=== PATIENT | female | born 1970 | race Caucasian/White ===

== ENCOUNTER 2016-05-25 22:03 | Emergency (ER) | payer OTHER ==
[~2016-05-25] VITALS: Ht 162.6 cm; Wt 96.6 kg
[2016-05-25 22:07] VITALS: BP 156/94
--- NOTE | 2016-05-25 22:54 | NUR ---
TO ER BED 8
--- NOTE | 2016-05-25 23:00 | NUR ---
PT IS A 45/F BIB SELF TO ED WITH C/O BILATERAL LEG SWELLING x 3 DAYS AGO. PT DENIES INJURY OR TRAUMA. PT STATES NO MED HX. DENIES N/V/D; SKIN IS PINK/WARM/DRY; AAOX4 WITH EVEN AND STEADY GAIT; LUNGS CLEAR BL; HR EVEN AND REGULAR; PT DENIES ANY FEVER, CP, SOB, OR COUGH AT THIS TIME; PATIENT STATES PAIN OF 7/10 AT THIS TIME; VSS; PATIENT POSITIONED FOR COMFORT; HOB ELEVATED; BEDRAILS UP X2; BED DOWN. ER MD MADE AWARE OF PT STATUS.
--- NOTE | 2016-05-25 23:13 | NUR ---
Patient being evaluated by physician at bedside.
[2016-05-25] MEDS ORDERED: HYDROcodone/APAP 5/325 MG 1 TAB TAB PO ONE (23:30)
--- NOTE | 2016-05-26 00:15 | NUR ---
PT JUST FINISHED US AT BEDSIDE.
[2016-05-26 01:32] VITALS: BP 136/84
== END 2016-05-26 01:32 | disposition home or self-care (01) ==
LOC: MED 22:03
DX: R60.9 Edema, unspecified (principal); R21 Rash and other nonspecific skin eruption; F17.210 Nicotine dependence, cigarettes, uncomplicated; Z88.6 Allergy status to analgesic agent; Z90.89 Acquired absence of other organs
CPT/HCPCS: 36415; 71010; 80053; 82550; 82553; 83880; 84484; 85025; 93005; 93970; 99285; Q0092

== ENCOUNTER 2017-04-18 11:27 | Emergency (ER) | payer OTHER ==
[~2017-04-18] VITALS: Ht 162.6 cm; Wt 97.5 kg
[2017-04-18 11:34] VITALS: BP 138/84
--- NOTE | 2017-04-18 11:45 | NUR ---
INFLUENZA SWAB COLLECTED AND SENT TO LAB. PT SENT BACK INTO LOBBY TO WAIT FOR BED.
[2017-04-18] MEDS ORDERED: ACETAMINOPHEN EXTRA STRENGTH 500 MG TAB ONE (11:50)
--- NOTE | 2017-04-18 12:25 | NUR ---
Patient ambulated to OF3 with family. RN evaluating patient.
--- NOTE | 2017-04-18 12:40 | NUR ---
FLU LIKE S/S;BODY ACHES, FEVER LAST NIGHT, DENIES ANY N/V/D, OR ABD PAIN. PT HERE WITH SON WITH SIMILIAR SYMPTOMS. RESP EVEN AND UNLABORED, REPORTS INTEMITTENT BOOKER COUGH. PT SPEKAING IN FULL CLR SENTENCES. VSS HX: NONE
--- NOTE | 2017-04-18 12:42 | NUR ---
ER MD SPENCER AT BEDSIDE
[2017-04-18] MEDS ORDERED: ACETAMIN/CODEINE 120/12MG-5ML 5 ML UDC PO ONE (12:55)
== END 2017-04-18 13:17 | disposition home or self-care (01) ==
LOC: MED 11:27
DX: J06.9 Acute upper respiratory infection, unspecified (principal); Z88.6 Allergy status to analgesic agent
CPT/HCPCS: 36415; 87804; 99284

== ENCOUNTER 2017-08-19 05:11 | Emergency (ER) | payer OTHER ==
[~2017-08-19] VITALS: Ht 162.6 cm; Wt 88.0 kg
[2017-08-19 05:13] VITALS: BP 142/90
--- NOTE | 2017-08-19 05:17 | NUR ---
TO BED # 9 AMBULATORY
--- NOTE | 2017-08-19 05:20 | NUR ---
47/F CAME IN W C/O BURNING EPIGASTRIC PAIN RADIATING UP TO HER THROAT. PT STATES "I ALWAYS HAVE REFLUX AND BURNING ALL THE TIME, I TOOK ZANTAC BUT IT DID NOT HELP ME". N/V X2, ABD SOFT, ROUND, -TENDERNESS, BS ACTIVE X4. PMH: GERD
--- NOTE | 2017-08-19 05:35 | NUR ---
Dr. Grant evaluating patient at bedside.
[2017-08-19] MEDS ORDERED: NACL 0.9% 1,000 ML IV SCH (05:36)
[2017-08-19] MEDS ORDERED: ONDANSETRON 4 MG/2 ML VIAL IVP ONE (05:40)
[2017-08-19] MEDS ORDERED: FAMOTIDINE 20 MG/2 ML VIAL IVP ONE (05:40)
[2017-08-19] MEDS ORDERED: MORPHINE SULFATE 4 MG/ML SYR IVP ONE (05:40)
[2017-08-19 06:10] LABS: BASOPHILS % (AUTO) 0.6 % (0.0-2.0); EOSINOPHILS # (AUTO) 0.1 K/uL (0-0.4); EOSINOPHILS % (AUTO) 0.9 % (0.0-4.0); HEMATOCRIT 38.6 % (36-48); HEMOGLOBIN 12.9 g/dL (12.0-16.0); LYMPHOCYTES # (AUTO) 0.8 K/uL (2.5-16.5); LYMPHOCYTES % (AUTO) 10.7 % (20.5-51.1); MEAN CORPUSCULAR HEMOGLOBIN 30 pg (27-31); MEAN CORPUSCULAR HGB CONC 34 g/dL (33-37); MEAN CORPUSCULAR VOLUME 89.8 fL (80-94); MONOCYTES # (AUTO) 0.8 K/uL (0.8-1.0); MONOCYTES % (AUTO) 10.5 % (1.7-9.3); NEUTROPHILS # (AUTO) 5.6 K/uL (1.8-7.7); NEUTROPHILS % (AUTO) 77.3 % (42.2-75.2); PLATELET COUNT (AUTO) 223 K/uL (140-450); RED CELL DISTRIBUTION WIDTH 13.1 % (11.6-13.7); WHITE BLOOD COUNT (AUTO) 7.2 K/uL (4.8-10.8)
--- NOTE | 2017-08-19 06:10 | NUR ---
Ultrasound at bedside.
[2017-08-19 06:22] LABS: APPEARANCE,URINE CLEAR (CLEAR); BILIRUBIN,URINE NEGATIVE (NEGATIVE); BLOOD, URINE NEGATIVE (NEGATIVE); COLOR,URINE YELLOW (YELLOW); LEUKOCYTE ESTERASE ,URINE TRACE (NEGATIVE); NITRITE, URINE NEGATIVE (NEGATIVE); UGLUCOSE NEGATIVE (NEGATIVE)
[2017-08-19 06:28] LABS: ALBUMIN 3.4 g/dL (3.4-5.0); CREATININE 0.8 mg/dL (0.6-1.3); TOTAL BILIRUBIN 0.4 mg/dL (0.0-1.0)
--- NOTE | 2017-08-19 06:38 | NUR ---
PT TAKEN TO CT
[2017-08-19 06:39] LABS: RBC,URINE 0-5 (RARE) /HPF (0-5); WBC,URINE 0-5 (RARE) /HPF (0-5)
--- NOTE | 2017-08-19 06:53 | NUR ---
PT RETURN FROM CT
--- NOTE | 2017-08-19 07:01 | NUR ---
Patient discharged with v/s stable. Written and verbal after care instructions given and explained. Patient alert, oriented and verbalized understanding of instructions. Ambulatory with steady gait. All questions addressed prior to discharge. ID band removed. Patient advised to follow up with PMD. Rx of NORCO, REGLAN, ZOFRAN ODT given. Patient educated on indication of medication including possible reaction and side effects. Opportunity to ask questions provided and answered.
[2017-08-19 07:05] VITALS: BP 124/72
== END 2017-08-19 07:01 | disposition home or self-care (01) ==
LOC: MED 05:11
DX: K29.70 Gastritis, unspecified, without bleeding (principal); K80.70 Calculus of gallbladder and bile duct without cholecystitis without obstruction; K44.9 Diaphragmatic hernia without obstruction or gangrene; K21.9 Gastro-esophageal reflux disease without esophagitis; Z90.89 Acquired absence of other organs; Z88.8 Allergy status to other drugs, medicaments and biological substances
CPT/HCPCS: 36415; 74176; 76705; 80053; 81001; 81025; 83690; 84703; 85025; 96361; 96374; 96375; 99285; J2270; J2405; J3490; J7030; Q0092

== ENCOUNTER 2017-09-15 22:18 | Emergency (ER) | payer OTHER ==
[~2017-09-15] VITALS: Ht 162.6 cm; Wt 99.8 kg
[2017-09-15 22:37] VITALS: BP 127/74
--- NOTE | 2017-09-15 22:45 | NUR ---
PT AMBULATED TO BED 1. FAMILY/FRIEND AT BEDSIDE
--- NOTE | 2017-09-15 22:50 | NUR ---
EPIGASTRIC PAIN, N/V, "GALL BLADDER HURTS". AWAITING GALL BLADDER REMOVAL SURGERY. . DENIES N/V/D; SKIN IS PINK/WARM/DRY; AAOX4 WITH EVEN AND STEADY GAIT; LUNGS CLEAR BL; HR EVEN AND REGULAR; PT DENIES ANY FEVER, CP, SOB, OR COUGH AT THIS TIME; PATIENT STATES PAIN OF 9/10 AT THIS TIME; VSS; PATIENT POSITIONED FOR COMFORT; HOB ELEVATED; BEDRAILS UP X2; BED DOWN. ER MD MADE AWARE OF PT STATUS.
[2017-09-15] MEDS ORDERED: NACL 0.9% 500 ML IV ONE (23:07)
[2017-09-15] MEDS ORDERED: ONDANSETRON 4 MG/2 ML VIAL IVP ONE (23:10)
[2017-09-15] MEDS ORDERED: KETOROLAC 30 MG/ML VIAL IVP ONE (23:10)
--- NOTE | 2017-09-15 23:15 | NUR ---
STILL UNABLE TO GET URINE SAMPLE
[2017-09-16 00:06] LABS: BASOPHILS % (AUTO) 0.6 % (0.0-2.0); EOSINOPHILS # (AUTO) 0.1 K/uL (0-0.4); EOSINOPHILS % (AUTO) 1.1 % (0.0-4.0); HEMATOCRIT 40.4 % (36-48); HEMOGLOBIN 13.4 g/dL (12.0-16.0); LYMPHOCYTES # (AUTO) 1.4 K/uL (2.5-16.5); LYMPHOCYTES % (AUTO) 23.8 % (20.5-51.1); MEAN CORPUSCULAR HEMOGLOBIN 30 pg (27-31); MEAN CORPUSCULAR HGB CONC 33 g/dL (33-37); MEAN CORPUSCULAR VOLUME 90.2 fL (80-94); MONOCYTES # (AUTO) 0.7 K/uL (0.8-1.0); MONOCYTES % (AUTO) 11.5 % (1.7-9.3); NEUTROPHILS # (AUTO) 3.7 K/uL (1.8-7.7); PLATELET COUNT (AUTO) 243 K/uL (140-450); RED BLOOD CELL COUNT(AUTO) 4.49 MIL/uL (4.20-5.40); RED CELL DISTRIBUTION WIDTH 12.9 % (11.6-13.7); WHITE BLOOD COUNT (AUTO) 5.8 K/uL (4.8-10.8)
[2017-09-16 00:14] LABS: ANION GAP 11.3 (8-16); CARBON DIOXIDE 29.5 mmol/L (21-32); CREATININE 0.9 mg/dL (0.6-1.3); POTASSIUM 3.8 mmol/L (3.5-5.1)
[2017-09-16 00:20] LABS: ALBUMIN 3.4 g/dL (3.4-5.0); TOTAL BILIRUBIN 0.2 mg/dL (0.0-1.0)
--- NOTE | 2017-09-16 00:53 | NUR ---
Ultrasound at bedside.
--- NOTE | 2017-09-16 01:40 | NUR ---
Patient discharged with v/s stable. Written and verbal after care instructions given and explained. Patient alert, oriented and verbalized understanding of instructions. Ambulatory with steady gait. All questions addressed prior to discharge. ID band removed. Patient advised to follow up with PMD. Rx of ZOFRAN, VOLTAREN AND TRAMADOL given. Patient educated on indication of medication including possible reaction and side effects. Opportunity to ask questions provided and answered.
[2017-09-16 01:47] VITALS: BP 126/68
== END 2017-09-16 01:40 | disposition home or self-care (01) ==
LOC: MED 22:18
DX: K80.20 Calculus of gallbladder without cholecystitis without obstruction (principal); K21.9 Gastro-esophageal reflux disease without esophagitis; Z88.8 Allergy status to other drugs, medicaments and biological substances; Z90.89 Acquired absence of other organs
CPT/HCPCS: 36415; 76705; 80053; 83690; 85025; 96361; 96374; 96375; 99285; J1885; J2405; J7030; Q0092

== ENCOUNTER 2019-05-07 19:50 | Emergency (ER) | payer OTHER ==
--- NOTE | 2019-05-07 20:12 | NUR ---
NO ANSWER IN LOBBY OR OUTSIDE.
--- NOTE | 2019-05-07 20:12 | NUR ---
CALLED FOR PT, NO ANSWER IN LOBBY OR OUTSIDE OF ER
--- NOTE | 2019-05-07 20:23 | NUR ---
CALLED FOR PT, NO ANSWER IN LOBBY OR OUTSIDE OF ER
--- NOTE | 2019-05-07 20:25 | NUR ---
CALLED FOR PT, NO ANSWER IN LOBBY OR OUTSIDE OF ER
== END 2019-05-07 20:12 | disposition left against medical advice (07) ==
LOC: MED 19:50
DX: R51 Headache (principal); Z53.21 Procedure and treatment not carried out due to patient leaving prior to being seen by health care provider

== ENCOUNTER 2020-05-25 15:27 | Emergency (ER) | payer OTHER ==
[~2020-05-25] VITALS: Ht 162.6 cm; Wt 97.5 kg
[2020-05-25 15:42] VITALS: BP 126/92
--- NOTE | 2020-05-25 15:48 | NUR ---
AMBULATED TO BED 3
--- NOTE | 2020-05-25 16:05 | NUR ---
49 Y/O FEMALE BROUGHT IN FROM COMING WITH A C/C OF ABDOMINAL PAIN. 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 PT STATES SHE HAS A HISTORY OF ABDOMINAL HERNIA AND STATES THAT LIFTING AGGREVATED IT. PT DESCRIBES PAIN 10/10, BURNING/CONSTANT, NON-RADIATING PAIN TO HER MID-GASTRIC/EPIGASTRIC REGION. PT STATES ASSOCIATED CONSTIPATION X 3 DAYS. PT DENIES NAUSEA, VOMITING, PAINFUL URINATION, DIZZINESS, HEADCHE, SOB, CP, COUGH. PT DENIES ANY TAKING ANY MEDS PRIOR TO ARRIVAL. LUNG SOUNDS CTA. BOWEL SOUNDS HYPOACTIVE X 4 QUADRANTS. 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 BED LOCKED IN LOWEST POSITION, SIDE RAILS X 1 PMH: ABDOMINAL HERNIA, HTN MEDICATION: LOSARTAN ALLERGIES: IBUPROFEN SX: APPENDECTOMY 2004, CHOLECYSTECTOMY 2018
--- NOTE | 2020-05-25 16:12 | NUR ---
DR. RUIZ IS EVALUATING PATIENT AT BEDSIDE.
--- NOTE | 2020-05-25 16:30 | NUR ---
PT RESTING WITH BOTH EYES OPEN IN SEMI-FOWLERS POSITION. BLANKET PROVIDED PER PT REQUEST. ALL PT NEEDS MET AT THIS TIME. EQUAL CHEST RISE AND FALL. RESPIRATION EVEN/UNLABORED. ORDER PICKER IN PLACE. BED LOCKED IN LOWEST POSITION, SIDE RAILS X 1, CALL LIGHT IN REACH.
[2020-05-25] MEDS ORDERED: MORPHINE SULFATE 4 MG/ML SYR IVP ONE (16:35)
[2020-05-25] MEDS ORDERED: ASPIRIN 325 MG TAB PO ONE (16:35)
[2020-05-25] MEDS ORDERED: ALUMINUM HYD/MAG/SIMETHICONE 30 ML, DICYCLOMINE HCL LIQUID 20 MG, LIDOCAINE VISCOUS 2% ... PO ONE ×3 (16:35)
[2020-05-25] MEDS ORDERED: NITROGLYCERIN 0.4 MG TAB SL ONE (16:35)
--- NOTE | 2020-05-25 16:38 | NUR ---
EKG AT BEDSIDE
[2020-05-25] MEDS ORDERED: LIDOCAINE VISCOUS 2% 20 ML UDC ONE (16:53)
[2020-05-25] MEDS ORDERED: ALUMINUM HYD/MAG/SIMETHICONE 30 ML UDC ONE (16:54)
[2020-05-25] MEDS ORDERED: DICYCLOMINE HCL LIQUID 10 MG/5 ML UDC ONE (16:54)
--- NOTE | 2020-05-25 16:57 | NUR ---
BLOOD SAMPLE COLLECTED, HANDED TO MORELIA HOT PLATE PLYWOOD PRESS FEEDER IN ER.
[2020-05-25 17:06] LABS: BASOPHILS % (AUTO) 0.5 % (0.0-2.0); EOSINOPHILS # (AUTO) 0.1 K/uL (0-0.4); HEMATOCRIT 38.4 % (36-48); LYMPHOCYTES # (AUTO) 1.8 K/uL (2.5-16.5); LYMPHOCYTES % (AUTO) 25.8 % (20.5-51.1); MEAN CORPUSCULAR HEMOGLOBIN 30 pg (27-31); MEAN CORPUSCULAR HGB CONC 34 g/dL (33-37); MEAN CORPUSCULAR VOLUME 89.6 fL (80-94); MONOCYTES # (AUTO) 0.5 K/uL (0.8-1.0); MONOCYTES % (AUTO) 6.6 % (1.7-9.3); NEUTROPHILS # (AUTO) 4.6 K/uL (1.8-7.7); NEUTROPHILS % (AUTO) 65.1 % (42.2-75.2); PLATELET COUNT (AUTO) 279 K/uL (140-450); RED BLOOD CELL COUNT(AUTO) 4.29 MIL/uL (4.20-5.40); RED CELL DISTRIBUTION WIDTH 13.1 % (11.6-13.7)
--- NOTE | 2020-05-25 17:25 | NUR ---
PT STATES POSITIVE RELIEF AFTER MEDICATION ORDERS. PT STATES PAIN IS 4/10 AT THIS TIME. WORKERS COMPENSATION CLAIMS ANALYST IN PLACE. EQUAL CHEST RISE AND FALL. RESPIRATIONS EVEN/UNLABORED. BED LOCKED IN LOWEST POSITION, SIDE RAILS X 1, CALL LIGHT IN REACH. ALL PT NEEDS MET AT THIS TIME.
--- NOTE | 2020-05-25 17:36 | NUR ---
PT RESTING IN SEMI-FOWLERS POSITION. LIGHTS DIMMED PER PT REQUEST. PT STATES PAIN IS 0/10 AT THIS TIME. EQUAL CHEST RISE AND FALL. RESPIRATION EVEN/UNLABORED. HEAD HOLDER IN PLACE. BED LOCKED IN LOWEST POSITION, SIDE RAILS X 1, CALL LIGHT IN REACH.
[2020-05-25 17:42] LABS: ALBUMIN 3.6 g/dL (3.4-5.0); ANION GAP 11.8 (8-16); CARBON DIOXIDE 28.9 mmol/L (21-32); CREATININE 0.9 mg/dL (0.6-1.3); POTASSIUM 3.7 mmol/L (3.5-5.1); PROTHROMBIN TIME 9.7 secs (10.8-13.4); TOTAL BILIRUBIN 0.2 mg/dL (0.0-1.0)
--- NOTE | 2020-05-25 18:21 | NUR ---
PT IS RESTING IN SEMI-FOWLERS POSITION. 2 WARM BLANKETS AND PILLOW PROVIDED PER PT REQUEST. PT IS IN POSITION OF COMFORT WITH ALL NEEDS MET. TELEVISION WRITER IN PLACE. BED LOCKED IN LOWEST POSITION, SIDE RAILS X1, CALL LIGHT IN REACH.
--- NOTE | 2020-05-25 19:14 | NUR ---
REPORT AND TRANSFER OF CARE GIVEN TO RAYMON SINGH.
--- NOTE | 2020-05-25 19:58 | NUR ---
PT LAYING IN BED QUIETLY. SHE C/O RETURNING EPIGASTRIC PAIN 10/23. WILL NOTIFY JOSE.
[2020-05-25] MEDS ORDERED: FAMOTIDINE 20 MG/2 ML VIAL IVP ONE (20:05)
--- NOTE | 2020-05-25 20:24 | NUR ---
PT ADMINISTERED PEPCID 20MG IVP. VSS, R/R EQUAL, AND UNLABORED. WILL REEVALUATE PAIN IN 15 MIN. BED IN LOW POSITION SIDE RAIL X1, WILL CONTINUE TO MONITOR.
--- NOTE | 2020-05-25 21:00 | NUR ---
PT STATES PAIN IS 0/10. WILL CONTINUE TO MONITOR.
[2020-05-25 21:27] VITALS: BP 102/67
== END 2020-05-25 21:27 | disposition home or self-care (01) ==
LOC: MED 15:27
DX: R10.13 Epigastric pain (principal); R07.9 Chest pain, unspecified; K21.9 Gastro-esophageal reflux disease without esophagitis; I10 Essential (primary) hypertension; Z88.6 Allergy status to analgesic agent
CPT/HCPCS: 36415; 71045; 80053; 81002; 81025; 83690; 83880; 84484; 85025; 85610; 85730; 93005; 96374; 96375; 99285; J2270; J3490; 99284

== ENCOUNTER 2020-08-14 01:26 | Emergency (ER) | payer OTHER ==
[~2020-08-14] VITALS: Ht 162.6 cm; Wt 95.3 kg
--- NOTE | 2020-08-14 01:40 | NUR ---
PT AMBULATED TO THE BATHROOM FOR URINE COLLECTION
[2020-08-14 01:42] VITALS: BP 136/66
--- NOTE | 2020-08-14 01:43 | NUR ---
To ER bed 09
--- NOTE | 2020-08-14 01:45 | NUR ---
50 y.o female presents to the ED with abdominal pain. pt reports having a hiatal hernia. pain is 10/10 that feels like a soreness and a strain that is constant. pt has N/V all day and was feeling nauseous yesterday and constipation for 2-3x days. PMH: HYPERTENSION, HERNIA, APPENDIX REMOVAL, GALL BLADDER REMOVAL, AND OVARIAN CYST REMOVAL ALLERGIES: IBUPROFEN, MOTRIN
--- NOTE | 2020-08-14 02:16 | NUR ---
MD AT BEDSIDE EXAMINING PATIENT
[2020-08-14] MEDS ORDERED: MORPHINE SULFATE 4 MG/ML SYR IVP ONE (02:20)
[2020-08-14] MEDS ORDERED: ONDANSETRON 4 MG/2 ML VIAL IVP ONE (02:20)
[2020-08-14] MEDS ORDERED: NACL 0.9% 1,000 ML IV ONE (02:20)
[2020-08-14] MEDS ORDERED: MORPHINE SULFATE 4 MG/ML SYR ONE (02:31)
[2020-08-14] MEDS ORDERED: ONDANSETRON 4 MG/2 ML VIAL ONE (02:31)
[2020-08-14 02:32] LABS: BASOPHILS % (AUTO) 0.6 % (0.0-2.0); EOSINOPHILS # (AUTO) 0.2 K/uL (0-0.4); EOSINOPHILS % (AUTO) 2.5 % (0.0-4.0); HEMATOCRIT 39.1 % (36-48); HEMOGLOBIN 13.2 g/dL (12.0-16.0); LYMPHOCYTES # (AUTO) 1.8 K/uL (2.5-16.5); LYMPHOCYTES % (AUTO) 24.1 % (20.5-51.1); MEAN CORPUSCULAR HEMOGLOBIN 30 pg (27-31); MEAN CORPUSCULAR HGB CONC 34 g/dL (33-37); MEAN CORPUSCULAR VOLUME 88.6 fL (80-94); MONOCYTES # (AUTO) 0.7 K/uL (0.8-1.0); MONOCYTES % (AUTO) 9.4 % (1.7-9.3); NEUTROPHILS # (AUTO) 4.8 K/uL (1.8-7.7); NEUTROPHILS % (AUTO) 63.4 % (42.2-75.2); PLATELET COUNT (AUTO) 252 K/uL (140-450); RED BLOOD CELL COUNT(AUTO) 4.42 MIL/uL (4.20-5.40); RED CELL DISTRIBUTION WIDTH 13.6 % (11.6-13.7); WHITE BLOOD COUNT (AUTO) 7.6 K/uL (4.8-10.8)
[2020-08-14] MEDS: ONDANSETRON 4 MG/2 ML VIAL IVP ONE (02:37)
[2020-08-14] MEDS: MORPHINE SULFATE 4 MG/ML SYR IVP ONE (02:37)
[2020-08-14] MEDS: NACL 0.9% 1,000 ML IV ONE (02:37)
--- NOTE | 2020-08-14 02:38 | NUR ---
pt medicated with MD orders and signed consent for CTC
[2020-08-14 02:49] LABS: ALBUMIN 3.8 g/dL (3.4-5.0); ANION GAP 14.3 (8-16); CARBON DIOXIDE 27.5 mmol/L (21-32); CREATININE 0.9 mg/dL (0.6-1.3); POTASSIUM 3.8 mmol/L (3.5-5.1); TOTAL BILIRUBIN 0.3 mg/dL (0.0-1.0)
--- NOTE | 2020-08-14 03:04 | NUR ---
XRAY AT BEDSIDE
--- NOTE | 2020-08-14 03:29 | NUR ---
PT TO CT VIA [facility]
--- NOTE | 2020-08-14 03:44 | NUR ---
PT BACK FROM CT
--- NOTE | 2020-08-14 03:46 | NUR ---
ADOBE ARCHITECT REPORTED PT WAS GAGGING WHILE TAKING THE EXAM. NOTIFIED.
[2020-08-14] MEDS: METOCLOPRAMIDE 10 MG/2 ML INJ VIAL IVP ONE (04:03)
[2020-08-14] MEDS: HYDROmorphone PFS 2 MG/ML SYR IVP ONE (04:09)
--- NOTE | 2020-08-14 04:27 | NUR ---
PT DESATURATING TO LOW 85% AFTER ADMINSITERING DILAUDID 0.5ML AND REGLAN 2ML. PT PLACE ON MONITOR AND 2L O2 VIA NC
[2020-08-14] MEDS ORDERED: ONDA-24 PO (05:54)
[2020-08-14 06:04] VITALS: BP 92/58
--- NOTE | 2020-08-14 06:04 | NUR ---
Patient discharged with v/s stable. PATIENT HAS 0/10 PAIN. Written and verbal after care instructions given and explained. Patient alert, oriented and verbalized understanding of instructions. Ambulatory with steady gait. All questions addressed prior to discharge. ID band removed. Patient advised to follow up with PMD. Rx of ZOFRAN ODT given. Patient educated on indication of medication including possible reaction and side effects. Opportunity to ask questions provided and answered. VITALS: O2 SAT-98% RR- 13 HR- 89 BP-92/58
== END 2020-08-14 06:04 | disposition home or self-care (01) ==
LOC: MED 01:26
DX: R10.84 Generalized abdominal pain (principal); Z90.49 Acquired absence of other specified parts of digestive tract
CPT/HCPCS: 36415; 71045; 74177; 80053; 83605; 83690; 84484; 85025; 93005; 96361; 96374; 96375; 99285; J1170; J2270; J2405; J2765; J7030; Q9967

== ENCOUNTER 2021-06-30 00:28 | Emergency (ER) | payer OTHER ==
[~2021-06-30] VITALS: Ht 162.6 cm; Wt 97.5 kg
[~2021-06-30 00:28] MED LIST: ONDA-188 PO
[2021-06-30 00:33] VITALS: BP 135/87
--- NOTE | 2021-06-30 00:40 | NUR ---
Dr. Mejia at triage to exam patient.
[2021-06-30] MEDS: HYDROcodone/APAP 5/325 MG 1 TAB TAB PO ONE (00:49)
--- NOTE | 2021-06-30 00:55 | NUR ---
Wheelchair to bed 11 with her family
--- NOTE | 2021-06-30 02:13 | NUR ---
Patient discharged with v/s stable. Written and verbal after care instructions given and explained. Patient verbalized understanding. Ambulatory with steady gait. All questions addressed prior to discharge. Advised to follow up with PMD.
== END 2021-06-30 02:13 | disposition home or self-care (01) ==
LOC: MED 00:28
DX: S99.922A Unspecified injury of left foot, initial encounter (principal); K21.9 Gastro-esophageal reflux disease without esophagitis; I10 Essential (primary) hypertension; Z88.6 Allergy status to analgesic agent; Z79.899 Other long term (current) drug therapy; W22.09XA Striking against other stationary object, initial encounter; Y93.89 Activity, other specified; Y92.89 Other specified places as the place of occurrence of the external cause; Y99.8 Other external cause status
CPT/HCPCS: 29515; 73630; 73660; 99284; Q0092

== ENCOUNTER 2022-04-20 04:42 | Emergency (ER) | payer OTHER ==
[~2022-04-20] VITALS: Ht 162.6 cm; Wt 95.3 kg
[2022-04-20 04:48] VITALS: BP 145/102
--- NOTE | 2022-04-20 04:54 | NUR ---
TO BED 12 FOLLOWING TRIAGE
[2022-04-20] MEDS ORDERED: ONDANSETRON 4 MG/2 ML VIAL IVP ONE (05:00)
[2022-04-20] MEDS ORDERED: ALUMINUM HYD/MAG/SIMETHICONE 30 ML UDC PO ONE (05:00)
[2022-04-20] MEDS ORDERED: DICYCLOMINE HCL LIQUID 20 MG, ALUMINUM HYD/MAG/SIMETHICONE 30 ML, LIDOCAINE VISCOUS 2% ... PO ONE ×3 (05:05)
[2022-04-20] MEDS ORDERED: ALUMINUM HYD/MAG/SIMETHICONE 30 ML UDC ONE (05:10)
[2022-04-20] MEDS ORDERED: DICYCLOMINE HCL LIQUID 10 MG/5 ML UDC ONE (05:10)
[2022-04-20 05:41] LABS: BASOPHILS % (AUTO) 0.4 % (0.0-2.0); EOSINOPHILS # (AUTO) 0.1 K/uL (0-0.4); EOSINOPHILS % (AUTO) 1.6 % (0.0-4.0); HEMATOCRIT 39.1 % (36-48); HEMOGLOBIN 13.2 g/dL (12.0-16.0); LYMPHOCYTES # (AUTO) 2.3 K/uL (2.5-16.5); LYMPHOCYTES % (AUTO) 33.9 % (20.5-51.1); MEAN CORPUSCULAR HEMOGLOBIN 30 pg (27-31); MEAN CORPUSCULAR HGB CONC 34 g/dL (33-37); MEAN CORPUSCULAR VOLUME 88.1 fL (80-94); MONOCYTES # (AUTO) 0.6 K/uL (0.8-1.0); MONOCYTES % (AUTO) 8.9 % (1.7-9.3); NEUTROPHILS # (AUTO) 3.8 K/uL (1.8-7.7); NEUTROPHILS % (AUTO) 55.2 % (42.2-75.2); PLATELET COUNT (AUTO) 253 K/uL (140-450); RED BLOOD CELL COUNT(AUTO) 4.43 MIL/uL (4.20-5.40); RED CELL DISTRIBUTION WIDTH 13.1 % (11.6-13.7); WHITE BLOOD COUNT (AUTO) 6.9 K/uL (4.8-10.8)
[2022-04-20 06:05] LABS: ANION GAP 10.5 (8-16); CARBON DIOXIDE 32.2 mmol/L (21-32); CHLORIDE 104 mmol/L (98-107); POTASSIUM 3.7 mmol/L (3.5-5.1); SODIUM SERUM 143 mmol/L (136-145)
[2022-04-20 06:24] LABS: ALBUMIN 3.8 g/dL (3.4-5.0); ASPARTATE AMINOTRANSFERASE 17 U/L (15-37); CREATININE 0.9 mg/dL (0.6-1.3); GFR ARICAN-AMERICAN 86 mL/min (>90); GLUCOSE 99 mg/dL (74-106); LIPASE 99 U/L (73-393); TOTAL BILIRUBIN 0.2 mg/dL (0.0-1.0); UREA NITROGEN, BLOOD 19 mg/dL (7-18)
[2022-04-20] MEDS ORDERED: MORPHINE SULFATE 4 MG/ML SYR IVP ONE (06:45)
--- NOTE | 2022-04-20 06:50 | NUR ---
PT UP AND AMBULATES TO RESTROOM WITH STEADY GAIT.
--- NOTE | 2022-04-20 07:01 | NUR ---
URINE SENT TO LAB
[2022-04-20] MEDS ORDERED: SUCRALFATE 1 GM TAB PO SCH (07:20)
[2022-04-20] MEDS ORDERED: FAMOTIDINE 20 MG/2 ML VIAL IVP ONE (07:20)
--- NOTE | 2022-04-20 07:31 | NUR ---
PT TO CT
--- NOTE | 2022-04-20 07:31 | NUR ---
REPORT TO JOESPH ENNIS
[2022-04-20 08:04] LABS: APPEARANCE,URINE CLEAR (CLEAR); BILIRUBIN,URINE NEGATIVE (NEGATIVE); BLOOD, URINE NEGATIVE (NEGATIVE); COLOR,URINE YELLOW (YELLOW); LEUKOCYTE ESTERASE ,URINE NEGATIVE (NEGATIVE); NITRITE, URINE NEGATIVE (NEGATIVE); UGLUCOSE NEGATIVE (NEGATIVE)
[2022-04-20] MEDS ORDERED: SUCR1TAB35 PO (09:24)
[2022-04-20] MEDS ORDERED: [UNRECOGNIZED DRUG - CODE] PO (09:24)
[2022-04-20] MEDS ORDERED: DOCU-299 PO (09:24)
[2022-04-20] MEDS ORDERED: OMEP40EC23 PO (09:24)
[2022-04-20 09:51] VITALS: BP 142/92
== END 2022-04-20 09:52 | disposition home or self-care (01) ==
LOC: MED 04:42
DX: K21.9 Gastro-esophageal reflux disease without esophagitis (principal); E11.9 Type 2 diabetes mellitus without complications; I10 Essential (primary) hypertension; Z79.4 Long term (current) use of insulin; Z79.899 Other long term (current) drug therapy
CPT/HCPCS: 36415; 71045; 74176; 80053; 81003; 83690; 84484; 85025; 93005; 96374; 96375; 99285; J2270; J2405; J3490; Q0092

== ENCOUNTER 2022-09-17 03:23 | Emergency (ER) | payer OTHER ==
[~2022-09-17] VITALS: Ht 162.6 cm; Wt 97.5 kg
[~2022-09-17 03:23] MED LIST changes: +DOCU-299 PO; +OMEP40EC23 PO; +SUCR1TAB35 PO; +[UNRECOGNIZED DRUG - CODE] PO
[2022-09-17 03:34] VITALS: BP 150/85
--- NOTE | 2022-09-17 03:38 | NUR ---
TO BED 11 FOLLOWING TRIAGE
[2022-09-17] MEDS ORDERED: MORPHINE SULFATE 4 MG/ML SYR IVP ONE (04:00)
[2022-09-17] MEDS ORDERED: NACL 0.9% 1,000 ML IV ONE (04:00)
[2022-09-17] MEDS ORDERED: ONDANSETRON 4 MG/2 ML VIAL IVP ONE (04:00)
[2022-09-17 04:19] LABS: BASOPHILS % (AUTO) 0.6 % (0.0-2.0); EOSINOPHILS # (AUTO) 0.1 K/uL (0-0.4); EOSINOPHILS % (AUTO) 1.2 % (0.0-4.0); HEMATOCRIT 39.3 % (36-48); HEMOGLOBIN 13.2 g/dL (12.0-16.0); LYMPHOCYTES % (AUTO) 31.2 % (20.5-51.1); MEAN CORPUSCULAR HEMOGLOBIN 30 pg (27-31); MEAN CORPUSCULAR HGB CONC 34 g/dL (33-37); MEAN CORPUSCULAR VOLUME 88.3 fL (80-94); MONOCYTES # (AUTO) 0.5 K/uL (0.8-1.0); MONOCYTES % (AUTO) 8.6 % (1.7-9.3); NEUTROPHILS # (AUTO) 3.7 K/uL (1.8-7.7); NEUTROPHILS % (AUTO) 58.4 % (42.2-75.2); PLATELET COUNT (AUTO) 234 K/uL (140-450); RED BLOOD CELL COUNT(AUTO) 4.46 MIL/uL (4.20-5.40); RED CELL DISTRIBUTION WIDTH 13.9 % (11.6-13.7); WHITE BLOOD COUNT (AUTO) 6.4 K/uL (4.8-10.8)
--- NOTE | 2022-09-17 04:20 | NUR ---
Attempted to collect urine, pt states she is unable to urinate at this time
[2022-09-17 04:35] LABS: ALBUMIN 3.5 g/dL (3.4-5.0); ANION GAP 10.1 (8-16); CARBON DIOXIDE 30.3 mmol/L (21-32); CREATININE 0.8 mg/dL (0.6-1.3); POTASSIUM 3.4 mmol/L (3.5-5.1); TOTAL BILIRUBIN 0.2 mg/dL (0.0-1.0)
--- NOTE | 2022-09-17 05:02 | NUR ---
Pt to restroom for urine, ambulated with gait steady
--- NOTE | 2022-09-17 05:15 | NUR ---
Pt was unable to give urine at this time.
[2022-09-17] MEDS ORDERED: LORazepam 2 MG/ML VIAL IVP ONE (06:05)
--- NOTE | 2022-09-17 06:51 | NUR ---
Urine collected sent to lab
[2022-09-17 07:18] LABS: APPEARANCE,URINE CLEAR (CLEAR); BILIRUBIN,URINE NEGATIVE (NEGATIVE); BLOOD, URINE TRACE-I (NEGATIVE); COLOR,URINE YELLOW (YELLOW); LEUKOCYTE ESTERASE ,URINE NEGATIVE (NEGATIVE); NITRITE, URINE NEGATIVE (NEGATIVE); UGLUCOSE NEGATIVE (NEGATIVE)
[2022-09-17] MEDS ORDERED: ONDA8TAB87 PO (08:01)
[2022-09-17] MEDS ORDERED: OMEP40EC24 PO (08:01)
--- NOTE | 2022-09-17 09:03 | NUR ---
IV removed, catheter intact and site benign. Applied folded 4x4 gauze and tape to stop bleeding.
[2022-09-17 09:04] VITALS: BP 138/80
--- NOTE | 2022-09-17 09:04 | NUR ---
Patient discharged with v/s stable. Written and verbal after care instructions FOR ABD PAIN given and explained. Patient alert, oriented and verbalized understanding of instructions. Ambulatory with steady gait. All questions addressed prior to discharge. ID band removed. Patient advised to follow up with PMD. Rx of ZOFRAN AND OMEPRAZOLE given. Opportunity to ask questions provided and answered.
== END 2022-09-17 09:04 | disposition home or self-care (01) ==
LOC: MED 03:23
DX: R10.13 Epigastric pain (principal); R07.9 Chest pain, unspecified; R11.2 Nausea with vomiting, unspecified; I10 Essential (primary) hypertension; K21.9 Gastro-esophageal reflux disease without esophagitis; Z79.899 Other long term (current) drug therapy; Z88.5 Allergy status to narcotic agent
CPT/HCPCS: 36415; 74176; 80053; 81003; 83690; 85025; 96361; 96374; 96375; 99285; J2060; J2270; J2405; J7030

== ENCOUNTER 2023-08-22 11:32 | Emergency (ER) | payer OTHER ==
[~2023-08-22] VITALS: Ht 162.6 cm; Wt 88.5 kg
[~2023-08-22 11:32] MED LIST changes: +OMEP40EC24 PO; +ONDA8TAB87 PO; +SUCR-34 PO; -SUCR1TAB35 PO
[2023-08-22 11:35] VITALS: BP 136/85; PULSE 82; RESP 18; TEMP 97.8; O2SAT 99
[2023-08-22] MEDS: ONDANSETRON 4 MG ODT PO ONE (13:32)
[2023-08-22] MEDS ORDERED: ONDA-188 PO (13:56)
[2023-08-22] MEDS ORDERED: ACET-8905 PO (14:10)
[2023-08-22] MEDS: ACETAMINOPHEN EXTRA STRENGTH 500 MG TAB PO ONE (14:34)
[2023-08-22 15:05] VITALS: BP 134/89; PULSE 76; RESP 18; TEMP 97.8; O2SAT 99
== END 2023-08-22 16:04 | disposition home or self-care (01) ==
LOC: MED 11:32
DX: S60.212A Contusion of left wrist, initial encounter (principal); S09.90XA Unspecified injury of head, initial encounter; I10 Essential (primary) hypertension; K21.9 Gastro-esophageal reflux disease without esophagitis; Z79.1 Long term (current) use of non-steroidal anti-inflammatories (NSAID); Z79.899 Other long term (current) drug therapy; Z88.6 Allergy status to analgesic agent; W22.8XXA Striking against or struck by other objects, initial encounter; Y93.89 Activity, other specified; Y92.89 Other specified places as the place of occurrence of the external cause; Y99.8 Other external cause status
CPT/HCPCS: 70450; 73110; 99284; Q0162